=== PATIENT | female | born 2000 | race Hispanic/Latino ===

== ENCOUNTER 2019-01-02 03:47 | Observation (INO) | payer SELFPAY ==
[2019-01-02] MEDS ORDERED: Lorazepam 2 MG/ML VIAL ONE (03:54)
[2019-01-02 04:24] LABS: BHCG - Serum Negative (NEGATIVE); Pregs Control Background? CLEAR/WHITE (CLR/WHITE); Pregs Control Bar Appear? YES (CONTROL BAR)
[2019-01-02 04:26] LABS: Acetaminophen Less than 6.0 mcg/mL (10.0-30.0); Alcohol Less than 10 mg/dL (Less than 10); Salicylate Less than 8.0 mg/dL (15.0-30.0)
[2019-01-02 04:28] LABS: Hemoglobin 15.2 g/dL (12.0-16.0); Mean Corpuscular HGB CONC 34.1 g/dL (32.0-36.0); Mean Corpuscular Hemoglobin 31.9 pg (25.0-35.0); Mean Corpuscular Volume 93.6 fL (78.0-98.0); Mean Platelet Volume 9.2 fL (7.4-10.4); Platelet Count 214 thou/uL (130-400); RBC Distribution Width 11.2 % (11.5-14.5); Red Blood Cell (RBC) Count 4.77 mill/uL (4.00-5.20); White Blood Cell (WBC) Count 16.7 thou/uL (4.8-10.8)
[2019-01-02] MEDS ORDERED: levETIRAcetam 500 MG TAB PO SCH (04:45)
[2019-01-02 04:51] LABS: ALT (SGPT) 12 U/L (8-55); AST (SGOT) 27 U/L (5-34); Albumin 4.7 g/dL (3.5-5.0); Alkaline Phosphatase 68 U/L (40-150); Anion Gap 26 mmol/L (10-20); BUN (Urea Nitrogen) 10 mg/dL (7.0-18.7); Bilirubin, Total 0.4 mg/dL (0.2-1.2); Calc. Creatinine Clearance 0 mL/min (70-130); Calcium 10.3 mg/dL (7.8-10.44); Carbon Dioxide 12 mmol/L (22-29); Chloride 104 mmol/L (98-107); Estimated GFR-MDRD 84; Globulin 3.7 g/dL (2.4-3.5); Glucose 117 mg/dL (70-105); Potassium 3.7 mmol/L (3.5-5.1); Protein, Total 8.4 g/dL (6.0-8.3); Sodium 138 mmol/L (136-145)
[2019-01-02 05:03] LABS: Band 3 % (5-11); Eosinophils 2 % (0-10); Lymphocytes 55 % (28-48); MDiff Complete? YES; Monocytes 3 % (0-4); Neutrophil 37 % (31-61); RBC Morphology Normal
[2019-01-02 06:03] LABS: Amphetamine Not Detected (NotDetected); Barbiturates Screen Not Detected (NotDetected); Benzodiazepine Screen Not Detected (NotDetected); Cocaine Metabolite Screen Not Detected (NotDetected); Medtox Control Line Valid? VALID (VALID); Medtox Reader # READER 1; Methadone Not Detected (NotDetected); Methamphetamine Not Detected (NotDetected); Opiate Screen Not Detected (NotDetected); Oxycodone Screen Not Detected (NotDetected); Phencyclidine (PCP) Not Detected (NotDetected); THC/Cannabinoid Screen Not Detected (NotDetected); Tricyclic Screen Not Detected (NotDetected)
[2019-01-02] MEDS ORDERED: Piperacillin/Tazobactam 3.375 GM VIAL ONE (06:28)
[2019-01-02] MEDS ORDERED: Ondansetron PF 4 MG/2 ML Vial ONE (06:42)
[2019-01-02 07:24] LABS: Bilirubin Negative (Negative); Blood, Urine Negative (Negative); Clarity Clear (Clear); Glucose, Urine (Dipstick) Normal (Negative); Leukocyte Negative Leu/uL (Negative); Nitrite Negative (Negative); Protein, Urine (Dipstick) Negative (Neg-Trace); Urobilinogen Normal mg/dL (Less than 2)
[2019-01-02] MEDS ORDERED: methylPREDNISolone Sod Succ/PF 125 MG/2 ML VIAL ONE (07:54)
[2019-01-02] MEDS ORDERED: diphenhydrAMINE 50 MG/ML VIAL ONE (07:54)
[2019-01-02] MEDS ORDERED: Famotidine/PF 20 mg/2ml Vial ONE (07:54)
--- NOTE | 2019-01-02 07:54 | CT ---
CT Brain WO Con History: Altered mental status. Seizure. Comparison: CT brain 2016 Findings: No acute hemorrhage or infarct. No midline shift or mass effect. Ventricular size and extra -axial CSF spaces are normal. Calvarium is intact. The nasal sinuses and mastoids are clear. Impression: No acute intracranial abnormality.
[2019-01-02] MEDS ORDERED: Famotidine/PF 20 mg/2ml Vial IVPB SCH (08:00)
--- NOTE | 2019-01-02 08:00 | RAD ---
Chest one view HISTORY: Syncope. Seizure. COMPARISON: 05/23/2016. FINDINGS: Cardiac silhouette is magnified by projection. Pulmonary vasculature is unremarkable. Media stinum is midline. No lobar consolidation or evidence of pneumothorax. hall monitor leads overlie the chest. IMPRESSION: No active cardiopulmonary abnormalities are demonstrated.
[2019-01-02 10:35] VITALS: BMI 23.7
[2019-01-02] MEDS ORDERED: Sodium Chloride 0.9% 1,000 ML IV SCH (10:45)
[2019-01-02] MEDS ORDERED: Piperacillin/Tazobactam 3.375 GM in Sodium Chloride 0.9% 100 ML IVPB SCH (12:00)
[2019-01-02] MEDS ORDERED: Acetaminophen 325 MG TAB PO PRN (12:13)
[2019-01-02] MEDS ORDERED: Ondansetron PF 4 MG/2 ML Vial IVP PRN (12:13)
[2019-01-02] MEDS ORDERED: Lorazepam 2 MG/ML VIAL SLOW IVP PRN (12:13)
[2019-01-02] MEDS ORDERED: Senokot S 8.6-50 MG TAB PO PRN (12:13)
--- NOTE | 2019-01-02 13:47 | HP ---
REASON FOR ADMISSION: Breakthrough seizure. HISTORY OF PRESENTING ILLNESS: The patient is currently somnolent due to medications given in the ER. She had apparently come for phlebotomy class this morning. She had a grand mal seizure, which was witnessed. A code green was called and the patient was taken to the emergency room. She has known history of seizure disorder and sees Dr. Mahan. She was on 250 of Keppra twice daily, which was increased to 500 mg twice daily recently on the by Dr. Mahan. It is unclear if the patient has started taking her increased dose. The majority of this history is obtained by talking to the patient's sister at bedside, ER notes, and prior records. Per sister, the patient did not have any fever, cough, or expectoration. No history of urinary symptoms including frequency or urgency. The last known seizure she had was in February of 2018. PAST MEDICAL AND SURGICAL HISTORY: History of seizure disorder from last 3 years and hypothyroidism. CURRENT MEDICATIONS: The patient is on; 1. Levothyroxine 100 mcg p.o. daily. 2. Keppra 250 mg twice daily, which was apparently increased to 500 twice daily on the and it is unclear if the patient started taking the increased dose. ALLERGIES: ALLERGIC TO VANCOMYCIN. PERSONAL HISTORY: Does not abuse alcohol or drugs. No history of smoking. FAMILY HISTORY: Both parents are healthy. CODE STATUS: Full. REVIEW OF SYSTEMS: Cannot be accurately obtained as the patient is somnolent at present. She barely awakens to deep stimuli and falls asleep. PHYSICAL EXAMINATION: GENERAL: The patient is a 18-year-old female, who is currently not in any acute distress, is very somnolent and sleeping at present. VITAL SIGNS: Blood pressure 130/64, pulse 86 per minute, respiratory rate 16 per minute, temperature 98.1 degrees Fahrenheit, and saturating 98% on room air. NECK: Supple. No elevated JVD. HEENT: Eyes; extraocular muscles intact. Pupils reacting to light. Oral cavity, mucous membranes are dry. No exudates or congestion. CARDIOVASCULAR: S1 and S2 heard. Regular rhythm. RESPIRATORY: Air entry 1+ bilateral. No rales or rhonchi. ABDOMEN: Soft. Bowel sounds heard. No tenderness, rigidity, or guarding. EXTREMITIES: No peripheral edema or calf tenderness. VASCULAR: Peripheral pulses 1+ bilateral. No ischemic ulcerations or gangrene. CENTRAL NERVOUS SYSTEM: No gross focal deficits noted. The patient is very somnolent at present. She was seen moving all extremities. No focal sign seen. PSYCHIATRIC: No obvious hallucinations or delusions. LABORATORY DATA: CT brain done shows no acute intracranial abnormality. Chest x-ray, no acute cardiopulmonary abnormality. White count of 16, H and H 15 and 44, platelet count 214 with 37% neutrophils, 3% bands, 55% lymphocytes. Serum bicarb 12, BUN 10, creatinine 0.8, glucose 117, albumin 4.7. Serum test is negative. UA is negative for any infection. There are trace ketones. Urine drug screen is negative. CLINICAL IMPRESSION AND PLAN: The patient will be under observation on stroke unit for breakthrough seizure. She has known history of seizure disorder from last 3 years. The dose of her Keppra was increased to 500 mg twice daily on the by Dr. Mahan last month and it is unclear if the patient has been taking it. We will obtain a Keppra levels. She will be placed back on her Keppra 500 mg p.o. twice daily. If she does not wake up, she will be on IV same dose of medication. She is otherwise hemodynamically stable. The patient has metabolic acidosis and elevated white count due to margination and likely moderate dehydration. We will gently hydrate her with normal saline at 150 mL/hour for a total of 2 L. TSH level in the morning will be obtained. She will be on seizure precautions on stroke unit. Job ID: [id number] MTDD
[2019-01-02] MEDS: Sodium Chloride 0.9% 1,000 ML IV SCH ×2 (17:50→18:54)
[2019-01-02] MEDS ORDERED: Vancomycin HCl 1 GM in Premix Bag 1 BAG IVPB SCH (18:00)
[2019-01-02] MEDS: levETIRAcetam 500 MG TAB PO SCH (20:24)
[2019-01-02] MEDS: Famotidine 20 MG TAB PO SCH (20:24)
[2019-01-03 05:44] LABS: #Lymphocytes 2.1 thou/uL (1.20-3.40); #Monocytes 1.3 thou/uL (0.11-0.59); #Neutrophils 13.3 thou/uL (1.40-6.50); %Eosinophils 0.1 % (0.0-10.0); %Lymphocytes 12.7 % (28.0-48.0); %Monocytes 7.8 % (0.0-4.0); %Neutrophils 79.3 % (31.0-61.0); Hemoglobin 11.7 g/dL (12.0-16.0); Mean Corpuscular HGB CONC 34.6 g/dL (32.0-36.0); Mean Corpuscular Hemoglobin 32.1 pg (25.0-35.0); Mean Corpuscular Volume 92.9 fL (78.0-98.0); Mean Platelet Volume 7.6 fL (7.4-10.4); Platelet Count 291 thou/uL (130-400); Red Blood Cell (RBC) Count 3.63 mill/uL (4.00-5.20); White Blood Cell (WBC) Count 16.8 thou/uL (4.8-10.8)
[2019-01-03 05:56] LABS: Anion Gap 10 mmol/L (10-20); BUN (Urea Nitrogen) 7 mg/dL (7.0-18.7); Calc. Creatinine Clearance 137 mL/min (70-130); Calcium 8.9 mg/dL (7.8-10.44); Carbon Dioxide 22 mmol/L (22-29); Chloride 111 mmol/L (98-107); Estimated GFR-MDRD Greater than 90; Glucose 108 mg/dL (70-105); Potassium 3.7 mmol/L (3.5-5.1); Sodium 139 mmol/L (136-145)
[2019-01-03] MEDS ORDERED: Levothyroxine Sodium 100 MCG TAB PO SCH (06:00)
[2019-01-03] MEDS ORDERED: Sodium Chloride 0.9% 500 ML IV SCH (07:45)
[2019-01-03 08:15] VITALS: BP 103/54; TEMP 98.2
[2019-01-03] MEDS ORDERED: Enoxaparin Sodium 40 MG/0.4 ML SYRINGE SC SCH (09:00)
[2019-01-03] MEDS: levETIRAcetam 500 MG TAB PO SCH (09:28)
[2019-01-03] MEDS: Famotidine 20 MG TAB PO SCH (09:30)
--- NOTE | 2019-01-04 16:00 | DIS ---
DATE OF ADMISSION: 01/02/2019 DATE OF DISCHARGE: 01/03/2019 DISCHARGE DISPOSITION: To home. DISCHARGE PRIMARY DIAGNOSES: Breakthrough seizure with history of seizure disorder and hypothyroidism. PROCEDURES DONE DURING HOSPITALIZATION: The patient has had chest x-ray done showed no acute cardiopulmonary abnormalities. CT brain done showed no acute intracranial abnormality. Blood cultures x2, no growth. Urine culture was contaminated. White count of 16 on the day of discharge, H and H 11 and 33, and platelet count 291 with 79% neutrophils. Initial bicarb was 12 with discharge numbers of 22. Liver enzymes within normal limits. Serum test negative. TSH 0.40. Urine drug screen was negative. Plasma alcohol less than 10. DISCHARGE MEDICATIONS: 1. Keppra 500 mg p.o. twice daily. 2. Levothyroxine 100 mcg p.o. daily. ALLERGIES: TO VANCOMYCIN. DISCHARGE PLAN: The patient to follow up with Dr. Mahan in 3 to 4 weeks. BRIEF COURSE DURING HOSPITALIZATION: The patient initially was admitted for an episode of grand mal seizure, which happened while she was here in the hospital during a phlebotomy class. She has initially stabilized in the ER and the patient was admitted to stroke unit for breakthrough seizure. She has known history of seizure disorder and was on Keppra 250 mg twice daily. This was increased to 500 twice daily on the [address] Mahan. It is unclear if the patient was taking the increased dose. She was apprehensive because the increased dose was causing her to be more somnolent. She also had a white count of 16 initially. This was thought to be margination due to dehydration. She was gently hydrated during her stay here. Despite which her white count has remained around the same number as 16,000 on admission. Her low bicarb completely resolved during her stay here. She was advised to come to the nearest emergency room if she were to develop fever, cough or expectoration, or urinary symptoms. Currently, a full workup for infectious source has been negative. She does not appear to be septic. She did not have any temperature. She has remained hemodynamically stable and will be shortly discharged home. Please note, I have counseled the patient not to drive until she is cleared by Dr. Mahan. Please note, I have seen and examined the patient on the day of discharge. Job ID: [id number] [facility]
== END 2019-01-03 11:03 | disposition home or self-care (01) ==
LOC: ERS 03:47 → 2SE 06:30
PROVIDERS: ADMIT Internal Medicine; ATTEND Internal Medicine
DX: G40.909 Epilepsy, unspecified, not intractable, without status epilepticus (principal); E03.9 Hypothyroidism, unspecified; Z88.1 Allergy status to other antibiotic agents; Z79.899 Other long term (current) drug therapy
CPT/HCPCS: 36415; 36416; 70450; 71045; 80048; 80053; 80164; 80177; 80185; 80306; 80307; 81003; 83605; 84443; 84703; 85025; 87040; 87086; 93005; 96361; 96365; 96367; 96375; G0378; J1200; J2060; J2405; J2543; J2930; J3370; J3490; S0028

== ENCOUNTER 2019-01-13 11:36 | Emergency (ER) | payer SELFPAY ==
[2019-01-13 12:10] LABS: #Basophils 0.1 thou/uL (0.0-0.2); #Eosinphils 0.2 thou/uL (0.0-0.7); #Lymphocytes 2.3 thou/uL (1.20-3.40); #Monocytes 0.5 thou/uL (0.11-0.59); #Neutrophils 7.2 thou/uL (1.40-6.50); %Basophils 0.6 % (0.0-1.0); %Eosinophils 1.7 % (0.0-10.0); %Lymphocytes 22.8 % (28.0-48.0); %Monocytes 4.4 % (0.0-4.0); %Neutrophils 70.4 % (31.0-61.0); Hemoglobin 14.5 g/dL (12.0-16.0); Mean Corpuscular HGB CONC 34.4 g/dL (32.0-36.0); Mean Corpuscular Hemoglobin 31.4 pg (25.0-35.0); Mean Corpuscular Volume 91.3 fL (78.0-98.0); Mean Platelet Volume 7.2 fL (7.4-10.4); Platelet Count 318 thou/uL (130-400); Red Blood Cell (RBC) Count 4.61 mill/uL (4.00-5.20); White Blood Cell (WBC) Count 10.2 thou/uL (4.8-10.8)
[2019-01-13 12:33] LABS: ALT (SGPT) 12 U/L (8-55); AST (SGOT) 16 U/L (5-34); Albumin 4.6 g/dL (3.5-5.0); Alkaline Phosphatase 62 U/L (40-150); Anion Gap 18 mmol/L (10-20); BUN (Urea Nitrogen) 9 mg/dL (7.0-18.7); Bilirubin, Total 0.3 mg/dL (0.2-1.2); Calc. Creatinine Clearance 0 mL/min (70-130); Calcium 9.7 mg/dL (7.8-10.44); Carbon Dioxide 17 mmol/L (22-29); Chloride 107 mmol/L (98-107); Estimated GFR-MDRD Greater than 90; Globulin 3.2 g/dL (2.4-3.5); Glucose 84 mg/dL (70-105); Potassium 3.9 mmol/L (3.5-5.1); Protein, Total 7.8 g/dL (6.0-8.3); Sodium 138 mmol/L (136-145)
[2019-01-13 13:15] LABS: BHCG - Serum Negative (NEGATIVE); Pregs Control Background? CLEAR/WHITE (CLR/WHITE); Pregs Control Bar Appear? YES (CONTROL BAR)
[2019-01-13] MEDS ORDERED: Acetaminophen 500 MG TAB ONE (13:56)
== END 2019-01-13 14:14 | disposition home or self-care (01) ==
LOC: ERS 11:36
DX: R56.9 Unspecified convulsions (principal); R00.0 Tachycardia, unspecified; E03.9 Hypothyroidism, unspecified; Z79.899 Other long term (current) drug therapy
CPT/HCPCS: 36415; 80053; 80177; 84443; 84703; 85025; 96360; 96361